=== PATIENT | male | born 1960 | race African-American/Black ===

== ENCOUNTER 2016-03-15 15:20 | Emergency (ER) | payer SELFPAY ==
[2016-03-15 15:28] VITALS: TEMP 98.5; BMI 31.7
[2016-03-15 15:53] VITALS: BP 179/101; PULSE 72
[2016-03-15] MEDS ORDERED: AZITHROMYCIN 250 MG TAB PO ONE (16:01)
[2016-03-15 16:03] LABS: LEUKOCYTES/URINE NEG (NEGATIVE); NITRITE/URINE NEG (NEGATIVE); URINE OCCULT BLOOD 1+ (NEG/TRACE)
[2016-03-15] MEDS ORDERED: LIDOCAINE 1% 2 ML (METHYLPARABEN FREE) ONE (16:06)
[2016-03-15] MEDS ORDERED: CEFTRIAXONE 250 MG VIAL IM ONE (16:15)
--- NOTE | 2016-03-15 16:28 | EDPRACDOC ---
- General Information Chief Complaint: Male Urogenital Problems Stated Complaint: BURNING WITH URINATION, LOW BACK PAIN Time Seen by Provider: 03/15/16 15:42 Information Source: Patient Home Medications: Home Medications Ibuprofen 800 mg PO TID PRN #30 tablet 10/26/15 Ketoprofen 50 mg PO .BID SEE COMMENTS PRN 10/26/15 Lisinopril/Hydrochlorothiazide [Lisinopril-Hctz 10-12.5 mg Tab] 1 tab PO DAILY # 30 tab 03/15/16 Metronidazole [Flagyl] 500 mg PO BID #10 tab 03/15/16 Allergies/Adverse Reactions: Allergies Allergy/AdvReac Type Severity Reaction Status Date / Time No Known Allergies Allergy Verified 03/15/16 15:28 - History of Present Illness Onset: 2-3 WKS HPI: PT PRESENTS TODAY WITH DYSURIA AND PENILE DISCHARGE X 3 WEEKS. NO FEVER, ABD PAIN, N/V/D. HAD UNPROTECTED SEX PRIOR TO EVENT. Symptom Onset: Reports: After [place] Urinary Output: Normal Penile Discharge: Reports: White Pain Severity: Moderate Pain Quality: Reports: Burning Pain Improves with: Reports: Nothing Relevent History of: Reports: Sexually Active Associated Signs & Symptoms: Reports: Dysuria, Penile Discharge ED Past Medical History - History Reviewed Yes Nurses notes reviewed and agree except as marked - Patient Medical History Cardiac History: Reports: Hypertension Psychological History: Denies: Depression - Social Medical History Smoking Status: Never smoker EDM Review of Systems - Review of Systems ROS Negative Except as Marked: Yes All systems reviewed and were negative except as marked Constitutional: No Symptoms Reported Respiratory: No Symptoms Reported Cardiovascular: No Symptoms Reported Gastrointestinal: No Symptoms Reported Genitourinary: Dysuria, Discharge Neurological: No Symptoms Reported Musculoskeletal: No Symptoms Reported Integumentary: No Symptoms Reported - Physical Exam Constitutional: Alert (Awake), No apparent distress Oriented to: Time, Person, Place Last recorded Vital Signs: Last Vital Signs Temp 98.5 F 03/15/16 15:24 Pulse 72 03/15/16 15:51 Resp 20 03/15/16 15:51 BP 179/101 H 03/15/16 15:51 Pulse Ox 93 03/15/16 15:51 Oxygen Pulse Oxygen Saturation 93 O2 Device Room Air Oxygen Flow Rate Fraction of Inspired Oxygen ( FIO2) - HEENT Head: Normal Eye Exam: Normal Neck: Normal, Denies Pain, Midline - Respiratory/Cardiovascular Respiratory: Normal - CTA Cardiovascular: Normal - GI Palpation: Normal Tenderness: Non tender - Male Genitalia: Bilateral: Other (PT DECLINES EXAM) - Musculoskeletal Back: Normal Extremities: Normal - Integumentary Skin: Normal Lymphatics: Normal - Neurologic Cerebellar: Normal Mood Description: Normal Thought: Coherent Perception: Normal - Results Urine Color Yellow 03/15/16 15:38 Urine Clarity Clear 03/15/16 15:38 Urine pH 5.0 (5.0-8.0) 03/15/16 15:38 Ur Specific [place] 1.025 (1.003-1.035) 03/15/16 15:38 Urine Protein Neg (NEG/TRACE) 03/15/16 15:38 Urine Glucose (UA) Neg (NEGATIVE) 03/15/16 15:38 Urine Ketones Neg (NEGATIVE) 03/15/16 15:38 Urine Occult Blood 1+ (NEG/TRACE) H 03/15/16 15:38 Urine Nitrite Neg (NEGATIVE) 03/15/16 15:38 Urine Bilirubin Neg (NEGATIVE) 03/15/16 15:38 Urine Urobilinogen <2.0 MG/DL (0-1) 03/15/16 15:38 Ur Leukocyte Esterase Neg (NEGATIVE) 03/15/16 15:38 Urine RBC 2-5 (0-2) H 03/15/16 15:38 Urine WBC 10-20 (0-2) H 03/15/16 15:38 Ur Epithelial Cells 1+ 03/15/16 15:38 Urine Bacteria Few (NEG/FEW) 03/15/16 15:38 Urine Mucus Occ (NEG/OCC) 03/15/16 15:38 Urine Trichomonas Mod (NONE) H 03/15/16 15:38 Lab Results 03/15/16 15:38 Urine Color Yellow Urine Clarity Clear Urine pH 5.0 Ur Specific [place] 1.025 Urine Protein Neg Urine Glucose (UA) Neg Urine Ketones Neg Urine Occult Blood 1+ H Urine Nitrite Neg Urine Bilirubin Neg Urine Urobilinogen <2.0 Ur Leukocyte Esterase Neg Urine RBC 2-5 H Urine WBC 10-20 H Ur Epithelial Cells 1+ Urine Bacteria Few Urine Mucus Occ Urine Trichomonas Mod H Decision Time to Discharge: 16:28 - Departure Disposition: Home Condition: Good Final Diagnosis: Trichomonas infection Instructions: Sexually Transmitted Diseases (ED) Education/Counseling Given To: Patient Education/Counseling Given Regarding: Diagnosis, Treatment, Follow Up Referrals: None,No Provider [Primary Care Provider] - One Week Prescriptions: New Metronidazole [Flagyl] 500 mg PO BID #10 tab Continue Lisinopril/Hydrochlorothiazide [Lisinopril-Hctz 10-12.5 mg Tab] 1 tab PO DAILY #30 tab No Action Ketoprofen 50 mg PO .BID SEE COMMENTS PRN PRN Reason: Pain Ibuprofen 800 mg PO TID PRN #30 tablet PRN Reason: Pain Additional Instructions: DO NOT DRINK WITH ANTIBIOTICS. DO NOT HAVE SEX FOR 10 DAYS. HAVE ALL PARTNERS TREATED.
[2016-03-18 16:38] LABS: CHLAMY BY NUCLEIC ACID AMP Negative (Negative)
[2016-03-19 07:50] LABS: GC BY NUCLEIC ACID AMP Negative (Negative)
== END 2016-03-15 16:39 | disposition home or self-care (01) ==
LOC: EDMC 15:20
DX: A59.00 Urogenital trichomoniasis, unspecified (principal); I10 Essential (primary) hypertension; Z79.899 Other long term (current) drug therapy
CPT/HCPCS: 81001; 87491; 87591; 96372; 99283; J0696; J2001; J3490